=== PATIENT | female | born 1970 | race American Indian/Alaskan Native ===

== ENCOUNTER 2021-02-24 15:37 | Emergency (ER) | payer OTHER ==
[2021-02-24 18:16] LABS: Bilirubin,Urine NEG (Negative); Blood,Urine SM (Negative); Color,Urine Yellow (Yellow); Mucus,Urine FEW /HPF; Protein,Urine <15 mg/dL mg/dL (Negative); Urobilinogen,Urine < 2.0 mg/dL (<2.0)
[2021-02-24 18:22] LABS: Basophils # (Auto) 0.1 K/mm3 (0.0-0.1); Basophils % (Auto) 0.9 % (0.0-1.8); Eosinophils # (Auto) 0.1 K/mm3 (0.0-0.4); Eosinophils % (Auto) 1.4 % (0.0-4.3); Hematocrit 38.1 % (30.3-42.9); Hemoglobin 11.7 gm/dl (10.1-14.3); Lymphocytes # (Auto) 2.2 K/mm3 (1.2-5.4); Lymphocytes % (Auto) 39.6 % (13.4-35.0); Mean Corpuscular HGB Conc 31 % (30-34); Mean Corpuscular Volume 82 fl (79-97); Monocytes # (Auto) 0.4 K/mm3 (0.0-0.8); Red Blood Count 4.67 M/mm3 (3.65-5.03); Red Cell Distribution Width 15.8 % (13.2-15.2)
[2021-02-24 18:32] LABS: Platelet Count 193 K/mm3 (140-440)
[2021-02-24 18:49] LABS: Alanine Aminotransferase 22 units/L (7-56); Albumin 4.1 g/dL (3.9-5); Blood Urea Nitrogen 13 mg/dL (7-17); Calcium 9.7 mg/dL (8.4-10.2); Hemolysis Index 58
[2021-02-24 18:51] LABS: BUN/Creatinine Ratio 19
[2021-02-24 19:09] VITALS: BP 148/87
--- NOTE | 2021-02-24 19:12 | Emergency Department Report ---
ED Female HPI - General Chief complaint: Vaginal Bleeding Stated complaint: vaginal bleeding Time Seen by Provider: 02/24/21 17:10 Source: patient Mode of arrival: Ambulatory Limitations: No Limitations - History of Present Illness Initial comments: 50-year-old female presents to the emergency room complaining of lower pelvic pain and vaginal bleeding. Patient states that she thinks she is . She reports that she did a home test. She reports her last menstrual period was 01/09/2021. She states that she is 10 para 2 but then she tells me she is probably 14 para 2. Patient does have a primary care provider. She denies any nausea no vomiting states she had some dizziness. MD Complaint: vaginal bleeding, pelvic pain Onset/Timin -: week(s) Location: suprapubic Quality: cramping Consistency: intermittent Improves with: none Worsens with: none Are you Now?: No Associated Symptoms: vaginal bleeding. denies: nausea/vomiting - Related Data Sexually active: Yes : 10 Para: 2 Home Medications Medication Instructions Recorded Confirmed Last Taken Ferrous Sulfate [Iron] 325 mg PO DAILY 02/03/18 02/08/18 02/06/18 09:00 Multivitamin [Multiple Vitamins] 1 each PO DAILY 02/03/18 02/08/18 02/06/18 09:00 Previous Rx's Medication Instructions Recorded Last Taken Type Cholecalciferol Vit D3 [Vitamin D3] 400 unit PO QDAY #30 tablet 02/09/18 Unknown Rx Docusate Sodium [Colace] 100 mg PO BID PRN #60 capsule 02/09/18 Unknown Rx Ferrous Sulfate [Feosol 325 MG tab] 325 mg PO BID #60 tablet 02/09/18 Unknown Rx Ibuprofen [Motrin] 800 mg PO Q8HR PRN #60 tablet 02/09/18 Unknown Rx Oxycodone HCl/Acetaminophen 1 each PO Q6HR PRN #45 tablet 02/09/18 Unknown Rx [Percocet 7.5/325 mg] Acetaminophen/Codeine [Tylenol 1 tab PO Q6H PRN #12 tab 02/26/18 Unknown Rx /Codeine # 3 tab] Allergies Allergy/AdvReac Type Severity Reaction Status Date / Time Sulfa (Sulfonamide AdvReac Hives Verified 02/24/21 16:19 Antibiotics) ED Review of Systems ROS: Stated complaint: vaginal bleeding Other details as noted in HPI Comment: All other systems reviewed and negative ED Past Medical Hx - Past Medical History Hx GERD: Yes Hx Headaches / Migraines: Yes (Migraines) - Surgical History Additional Surgical History: Myomectomy 2 weeks ago 01/2018 - Social History Smoking Status: Never Smoker - Medications Home Medications: Home Medications Medication Instructions Recorded Confirmed Last Taken Type Ferrous Sulfate [Iron] 325 mg PO DAILY 02/03/18 02/08/18 02/06/18 09:00 History Multivitamin [Multiple Vitamins] 1 each PO DAILY 02/03/18 02/08/18 02/06/18 09:00 History Cholecalciferol Vit D3 [Vitamin D3] 400 unit PO QDAY #30 tablet 02/09/18 Unknown Rx Docusate Sodium [Colace] 100 mg PO BID PRN #60 capsule 02/09/18 Unknown Rx Ferrous Sulfate [Feosol 325 MG tab] 325 mg PO BID #60 tablet 02/09/18 Unknown Rx Ibuprofen [Motrin] 800 mg PO Q8HR PRN #60 tablet 02/09/18 Unknown Rx Oxycodone HCl/Acetaminophen 1 each PO Q6HR PRN #45 tablet 02/09/18 Unknown Rx [Percocet 7.5/325 mg] Acetaminophen/Codeine [Tylenol 1 tab PO Q6H PRN #12 tab 02/26/18 Unknown Rx /Codeine # 3 tab] ED Physical Exam - General Limitations: No Limitations General appearance: alert, in no apparent distress - Head Head exam: Present: atraumatic, normocephalic - Eye Eye exam: Present: normal appearance - ENT ENT exam: Present: mucous membranes moist - Neck Neck exam: Present: normal inspection - Respiratory Respiratory exam: Present: normal lung sounds bilaterally. Absent: respiratory distress - Cardiovascular Cardiovascular Exam: Present: regular rate, normal rhythm. Absent: systolic murmur, diastolic murmur, rubs, gallop - GI/Abdominal GI/Abdominal exam: Present: soft, normal bowel sounds - Extremities Exam Extremities exam: Present: normal inspection - Back Exam Back exam: Present: normal inspection - Neurological Exam Neurological exam: Present: alert, oriented X3 - Psychiatric Psychiatric exam: Present: normal affect, normal mood - Skin Skin exam: Present: warm, dry, intact, normal color. Absent: rash ED Medical Decision Making - Lab Data Result diagrams: 02/24/21 17:49 02/24/21 17:49 - Medical Decision Making 50-year-old female presents to the emergency room complaining of lower pelvic pain and vaginal bleeding. Patient states that she thinks she is . She reports that she did a home test. She reports her last menstrual period was 01/09/2021. She states that she is 10 para 2 but then she tells me she is probably 14 para 2. Patient does have a primary care provider. She denies any nausea no vomiting states she had some dizziness. hCG is less than 2 which is not . Labs are all stable. Patient is to follow-up with her primary care provider and [facility]IST. Critical care attestation.: If time is entered above; I have spent that time in minutes in the direct care of this critically ill patient, excluding procedure time. ED Disposition Clinical Impression: Pelvic pain, Obesity, Menorrhagia Disposition: 01 HOME / SELF CARE / HOMELESS Is pt being admited?: No Does the pt Need Aspirin: No Condition: Stable Instructions: Menorrhagia, [id number], Obesity, Adult, [id number] Additional Instructions: test is negative. Labs are stable. Follow-up with your primary care provider or [facility]IST provider Referrals: DULCE MONTALVO MD [Primary Care Provider] - 3-5 Days Time of Disposition: 19:12
== END 2021-02-24 19:33 | disposition home or self-care (01) ==
LOC: ED 15:37
DX: N92.0 Excessive and frequent menstruation with regular cycle (principal); E66.9 Obesity, unspecified; Z88.2 Allergy status to sulfonamides; G43.909 Migraine, unspecified, not intractable, without status migrainosus
CPT/HCPCS: 36415; 80053; 81001; 84702; 85025; 86900; 86901; 99283

== ENCOUNTER 2021-04-03 13:12 | Emergency (ER) | payer OTHER ==
--- NOTE | 2021-04-03 13:43 | Emergency Department Report ---
Minor Respiratory - HPI Chief Complaint: Chest Pain Stated Complaint: chest pain Time Seen by Provider: 04/03/21 13:28 Duration: 5 Days Pain Location: Throat, Nose, Ear, Chest Severity: mild Minor Respiratory: Yes Rhinorrhea, Yes Sore Throat, Yes Able to Tolerate Fluids, Yes Ear Pain, Yes Cough, Yes Sick Contacts, Yes Fever, No Hemoptysis, No Chest Pain, No Shortness of Breath Other History: Chief complaint: Cough "I need my voice back.". HPI: This 50-year-old female with history of GERD, migraine, uterine fibroids, hypertension, rapid heartbeat, anemia who presents with cough nasal congestion and hoarse voice chest congestion for 5 days. Her primary physician performed flu test COVID test strep test. All tests were negative. She also has right ear fullness with throat drainage. she thinks she may have pneumonia. Her son had similar symptoms. She has been noncompliant with propranolol. Her physician has prescribed propranolol with to address tachycardia. ED Review of Systems ROS: Stated complaint: chest pain Other details as noted in HPI Comment: All other systems reviewed and negative Constitutional: fever, malaise ENT: throat pain, congestion Respiratory: cough. denies: shortness of breath Cardiovascular: denies: chest pain Gastrointestinal: denies: abdominal pain, nausea, vomiting ED Past Medical Hx - Past Medical History Previous Medical History?: Yes Hx GERD: Yes Hx Headaches / Migraines: Yes (Migraines) - Surgical History Past Surgical History?: Yes Additional Surgical History: Myomectomy 01/2018 - Family History Family history: hypertension - Social History Smoking Status: Never Smoker Substance Use Type: None - Medications Home Medications: Home Medications Medication Instructions Recorded Confirmed Last Taken Type Ferrous Sulfate [Iron] 325 mg PO DAILY 02/03/18 02/08/18 02/06/18 09:00 History Multivitamin [Multiple Vitamins] 1 each PO DAILY 02/03/18 02/08/18 02/06/18 09:00 History Cholecalciferol Vit D3 [Vitamin D3] 400 unit PO QDAY #30 tablet 02/09/18 Unknown Rx Docusate Sodium [Colace] 100 mg PO BID PRN #60 capsule 02/09/18 Unknown Rx Ferrous Sulfate [Feosol 325 MG tab] 325 mg PO BID #60 tablet 02/09/18 Unknown Rx Ibuprofen [Motrin] 800 mg PO Q8HR PRN #60 tablet 02/09/18 Unknown Rx Oxycodone HCl/Acetaminophen 1 each PO Q6HR PRN #45 tablet 02/09/18 Unknown Rx [Percocet 7.5/325 mg] Acetaminophen/Codeine [Tylenol 1 tab PO Q6H PRN #12 tab 02/26/18 Unknown Rx /Codeine # 3 tab] Minor Respiratory Exam - Exam General: Vital signs noted. No distress. Alert and acting appropriately. HEENT: Yes Moist Mucous Membranes, No Pharyngeal Erythema, No Pharyngeal Exudates, No Rhinorrhea, No Conjuctival Injection Ear: Neither TM Bulge, Neither TM Erythema, Neither EAC Pain, Neither EAC Discharge Neck: Yes Supple, No Adenopathy Lungs: Yes Good Air Exchange, No Wheezes, No Ronchi, No Stridor, No Cough, No Labored Respirations, No Retractions, No Use of Accessory Muscles, No Other Abnormal Lung Sounds Heart: Yes Regular, No Murmur Abdomen: Yes Normal Bowel Sounds, No Tenderness, No Peritoneal Signs Skin: No Rash, No Edema Neurologic: Alert and oriented, no deficits. Musculoskeletal: Unremarkable. ED Course Vital Signs 04/03/21 13:18 Temperature 98.5 F Pulse Rate 100 H Respiratory 18 Rate Blood Pressure 158/99 O2 Sat by Pulse 98 Oximetry ED Medical Decision Making - Radiology Data Radiology results: report reviewed Patient Name: ZECHARIAH BRONSON Gender: Female Date of : 1970 Referring Provider: CLAUDETTE CANTU Organization: [facility] Accession Number: [id number] Requested Date: April 03, 2021 13:38 Report Status: Final Requested Procedure: 1 Procedure Description: XR chest routine 2V Modality: XR Findings Reporting MD: Brice Sparrow Dictation Time: April 03, 2021 13:10 Floor Finisher: Not available Allergist/Pediatric Pulmonologist Date: CHEST 2 VIEWS INDICATION / CLINICAL INFORMATION: Nasal congestion cough chest congestion. COMPARISON: None FINDINGS: SUPPORT DEVICES: None. HEART / MEDIASTINUM: No significant abnormality. LUNGS / PLEURA: No significant pulmonary or pleural abnormality. No pneumothorax. ADDITIONAL FINDINGS: No significant additional findings. IMPRESSION: 1. No acute findings. Signer Name: Brice Sparrow DO Signed: 04/03/2021 1:10 PM Workstation Name: [id number] - Medical Decision Making Upper respiratory infection, chest radiograph negative for infiltrate pneumonia. Recommended [id number] Mucinex daytime and nighttime. Given extensive verbal education regarding rhinovirus infection. Critical care attestation.: If time is entered above; I have spent that time in minutes in the direct care of this critically ill patient, excluding procedure time. ED Disposition Clinical Impression: Upper respiratory infection Disposition: HOME / SELF CARE / HOMELESS Is pt being admited?: No Does the pt Need Aspirin: No Condition: Stable Instructions: Viral Respiratory Infection, [id number]
--- NOTE | 2021-04-03 14:14 | XRay Report ---
CHEST 2 VIEWS INDICATION / CLINICAL INFORMATION: Nasal congestion cough chest congestion. COMPARISON: None FINDINGS: SUPPORT DEVICES: None. HEART / MEDIASTINUM: No significant abnormality. LUNGS / PLEURA: No significant pulmonary or pleural abnormality. No pneumothorax. ADDITIONAL FINDINGS: No significant additional findings. IMPRESSION: 1. No acute findings. Signer Name: Brice Sparrow DO Signed: 04/03/2021 2:10 PM Workstation Name: [id number]
[2021-04-03 15:01] VITALS: BP 145/102
== END 2021-04-03 15:02 | disposition home or self-care (01) ==
LOC: ED 13:12
DX: J06.9 Acute upper respiratory infection, unspecified (principal); K21.9 Gastro-esophageal reflux disease without esophagitis; G43.909 Migraine, unspecified, not intractable, without status migrainosus; Z98.890 Other specified postprocedural states; Z88.1 Allergy status to other antibiotic agents
CPT/HCPCS: 71046; 99283